=== PATIENT | male | born 1960 | race Caucasian/White ===

== ENCOUNTER 2016-12-10 06:44 | Day surgery (SDC) | payer MEDICARE, OTHER ==
[2016-12-05 16:41] VITALS: BMI 28.5
[~2016-12-10 06:44] MED LIST: LACTATED RINGERS 1,000 ML IV SCH
[2016-12-10] MEDS ORDERED: LACTATED RINGERS 1,000 ML IV ONE (06:53)
[2016-12-10 07:14] VITALS: TEMP 96.8
[2016-12-10] MEDS ORDERED: PROPOFOL 10 MG/ML 20 ML VIAL IV ONE (07:46)
[2016-12-10] MEDS ORDERED: LIDOCAINE 1% INJ 10MG/ML (20 ML MDV) ONE (07:46)
--- NOTE | 2016-12-10 08:24 | P.OP ---
Date of Procedure: 12/10/16 Preoperative Diagnosis: History of computed tomography scan showing diverticular disease Postoperative Diagnosis: Polyp at 30 cm, rectosigmoid polypoid changes cold biopsies obtained, sigmoid diverticuli, internal hemorrhoids Procedure(s) Performed: Colonoscopy, snare polypectomy with retrieval of polyp at 30 cm, cold biopsy of 2 polypoid areas in the rectosigmoid area Anesthesia: MAC Surgeon: Layne Bradshaw Estimated Blood Loss (ml): 0 IV fluids (ml): 600 Pathology: other (Polyp at 30 cm removed with snare polypectomy and retrieved, rectosigmoid polypoid changes biopsied with cold biopsy 2 areas) Condition: stable Disposition: PACU Indications for Procedure: Screening as well as CT findings consistent with a diverticular change Operative Findings: Rectosigmoid polypoid changes, polyp at 30 cm, sigmoid diverticuli, internal hemorrhoids Description of Procedure: Patient was taken to the endoscopy suite and following sedation rectal exam was performed. Patient was noted to have good sphincter tone no masses. Colonoscope was passed through the anus into the rectum. At 30 cm a polyp was identified which was removed with snare polypectomy and retrieved. Scope was advanced through the sigmoid colon up to the splenic flexure. The scope was advanced through the transverse colon hepatic flexure right colon down to the area of the cecum. Circumferential observation of the mucosa did not reveal any lesions of concern in the cecum or right colon. No lesions of concern were identified in the transverse colon. In the sigmoid colon scattered diverticuli were noted. The area 30 cm with a polypectomy had been performed was again identified no evidence of any active bleeding was noted. At the rectosigmoid junction area some polypoid changes which were felt to be hyperplastic were identified. Cold biopsy was obtained of to these areas. The scope was brought into the rectum where it was retroflexed. The patient was noted to have internal hemorrhoids. Approximately 15 minutes were taken to withdraw the scope from the area of the cecum to the rectum. Impression/plan: 1. Polypoid lesions as described above await pathology 2. Diverticuli 3. Internal hemorrhoids Plan: 1. Most likely repeat scope in 2 years 2. Conservative management of diverticuli 3. Conservative management of hemorrhoids
[2016-12-10 08:25] VITALS: RESP 18
[2016-12-10 08:39] VITALS: BP 133/93; PULSE 73
--- NOTE | 2016-12-10 08:54 | P.DS ---
Providers Attending physician: Layne Bradshaw Primary care physician: Uziel Shah Plan - Discharge Summary Discharge Medication List HYDROcodone/APAP 10-325MG [[place] 10-325] 10 mg PO BID 04/11/14 [History] QUEtiapine [SEROquel] 100 mg PO HS 07/11/15 [History] Atorvastatin [Lipitor] 40 mg PO DAILY #30 tab 11/19/16 [Rx] Metoprolol Tartrate [Lopressor] 25 mg PO BID #30 tab 11/19/16 [Rx] Pantoprazole [Protonix] 40 mg PO AC-BRKFST #30 tablet. 11/19/16 [Rx] Testosterone Un 1 applic IM Q14D 12/05/16 [History] Follow up Appointment(s)/Referral(s): Layne Bradshaw MD [STAFF PHYSICIAN] - As Needed Patient Instructions/Handouts: *Surgery [facility] - (Anesthesia) Endoscopy Discharge Instructions, Colonoscopy (DC) Activity/Diet/Wound Care/Special Instructions: call Dr. Shah on Friday for results of biopsies Discharge Disposition: HOME SELF-CARE
== END 2016-12-10 09:11 | disposition home or self-care (01) ==
LOC: ORWHC2ENDO 06:44
PROVIDERS: ATTEND Surgery
DX: D12.5 Benign neoplasm of sigmoid colon (principal); K62.1 Rectal polyp; K57.30 Diverticulosis of large intestine without perforation or abscess without bleeding; K64.8 Other hemorrhoids; I10 Essential (primary) hypertension; K21.9 Gastro-esophageal reflux disease without esophagitis; Z79.899 Other long term (current) drug therapy
CPT/HCPCS: 88305; 45380; 45385; J2001; J2704; 99153

== ENCOUNTER 2017-03-14 10:35 | Emergency (ER) | payer MEDICARE, OTHER ==
[2017-03-14 10:49] VITALS: BP 156/94; PULSE 85; RESP 18; TEMP 98.4
[2017-03-14] MEDS ORDERED: ORPHENADRINE 30 MG/ML 2 ML VIAL IM STA (11:17)
[2017-03-14] MEDS ORDERED: KETOROLAC 60 MG/2 ML VIAL IM STA (11:17)
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
== END 2017-03-14 11:37 | disposition home or self-care (01) ==
LOC: EC 10:35
DX: Z76.0 Encounter for issue of repeat prescription (principal); M19.90 Unspecified osteoarthritis, unspecified site; F32.9 Major depressive disorder, single episode, unspecified; F41.9 Anxiety disorder, unspecified; F17.200 Nicotine dependence, unspecified, uncomplicated; Z79.891 Long term (current) use of opiate analgesic; Z79.899 Other long term (current) drug therapy
CPT/HCPCS: 99282

== ENCOUNTER → 2020-04-07 | Outpatient (CLI) | payer MEDICARE ==
--- NOTE | 2020-04-07 14:50 | CT ---
EXAMINATION TYPE: CT soft tissue neck w con DATE OF EXAM: 04/07/2020 2:17 PM COMPARISON: None HISTORY: right side mandibular swelling CT DLP: 550.5 mGycm Automated exposure control for dose reduction was used. CONTRAST: CT scan of the neck is performed following with IV Contrast, patient injected with 100 mL of Isovue 3 00. Axial images are obtained, coronal and sagittal reformatted images are reviewed. FINDINGS: Airway: No gross abnormality seen. There are some emphysematous changes in the upper lobes, subpleura l bleb formation in the apices. Parotid/submandibular glands: Within the right parotid gland there is a mass, oval in shape measurin g 1.8 x 2.5 x 3.2 cm in cephalad to caudal dimension abutting the right mandible posterior margin. On ly mild enhancement. Left parotid gland is unremarkable. Submandibular glands show a symmetric appear ance. Carotid/Vascular Structures: Patent, 3 super aortic branch vessels are present. Atheromatous changes are present at the carotid bifurcations, no significant stenosis is evident. Proximal descending aort a measures 3.2 cm. Left vertebral artery is dominant. Osseous Structures: There are degenerative disc changes present, spondylosis and loss of disc height greatest at C5-6 and C6-7. Other: Orbits show symmetric appearance. Mild inflammatory change present at the base of the right ma xillary sinus. IMPRESSION: Nonspecific right parotid mass. Proximal descending aorta is ectatic. Additional finding s above.
== END | disposition home or self-care (01) ==
LOC: RADCTMAIN 13:51
PROVIDERS: ATTEND Otolaryngology
DX: K11.8 Other diseases of salivary glands (principal); I77.819 Aortic ectasia, unspecified site
CPT/HCPCS: 70491; Q9967

== ENCOUNTER → 2020-08-02 | Outpatient (CLI) | payer MEDICARE ==
--- NOTE | 2020-08-02 22:57 | MR ---
MRI CERVICAL SPINE: CLINICAL HISTORY: Headaches with neck pain causing pain and weakness and right arm and fingers since December 2019 per patient. TECHNIQUE: Multiplanar, multisequence imaging of the cervical spine is performed without IV contrast. COMPARISON: CT neck March 2020.. FINDINGS: Sagittal images of the cervical spine show the craniocervical junction to remain within nor mal limits. The cervical and upper thoracic spinal cord is normal in course, caliber, and signal. Th ere is slight grade 1 retrolisthesis C6 on C7 redemonstrated. The vertebral body heights remain norm al. Mild to moderate disc space narrowing and anterior spurring with heterogeneous Modic type II endp late changes C5-C6 and C6-C7 level is present. Axial images show the C2-C3 level to appear within normal limits. Axial images at C3-C4 levels mild uncovertebral facet degenerative changes bilaterally. Similar findi ng noted at C4-C5 level. Axial images at the C5-C6 level show broad-based left paracentral disc protrusion and uncovertebral f acet degenerative changes bilaterally, there is mild right and moderate left-sided neural foraminal n arrowing noted. Axial images at the C6-C7 level show broad-based posterior disc protrusion effacing anterior thecal s ac with mild to moderate bilateral neural foraminal narrowing. Axial images at C7-T1 level are within normal limits. IMPRESSION: Multilevel degenerative changes in the cervical spine greatest at C5-C6 and C6-C7 levels as detailed above.
== END | disposition home or self-care (01) ==
LOC: RADMRIMAIN 18:33
PROVIDERS: ATTEND Psychiatry & Neurology Neurology
DX: M47.812 Spondylosis without myelopathy or radiculopathy, cervical region (principal)
CPT/HCPCS: 72141

== ENCOUNTER → 2020-09-23 | Outpatient (CLI) | payer MEDICARE ==
--- NOTE | 2020-09-25 14:45 | PE ---
EXAMINATION TYPE: PET CT fusion skull to thigh DATE OF EXAM: 09/23/2020 COMPARISON: CT neck 04/07/2020. CT abdomen and pelvis 01/31/2016. Prior PET/CT: None HISTORY: Lymphoma. TECHNIQUE: Following the intravenous administration of 12.33 mCi of F-18 FDG, whole body images are performed from the skull base to the midthigh. Images are reviewed on the computer in the coronal, a xial, and sagittal planes. Reconstructed rotating images are created on independent workstation and reviewed on the computer. A localization and attenuation correction CT is performed in conjunction with the PET scan. SCAN: Initial Scan Blood glucose: 101 mg/dL Average Mediastinum SUV: 1.4 Average Liver SUV: 1.9 FINDINGS: NECK: Multifocal hypermetabolic activity within the right parotid gland, and right cervical lymph no pearl and nodules demonstrating hypermetabolic activity inferior and posterior to the right parotid gla nd and infra-auricular, max SUV 3.8. Largest lymph node measures 0.8 x 1.7 cm (3:39). THORAX: No hypermetabolic activity. ABDOMEN/PELVIS: Hypermetabolic activity associated with the posterior gastric fundus with maximum SUV 4.25, with no discrete CT correlate. OSSEOUS STRUCTURES: No hypermetabolic activity. LOCALIZATION CT: Calcified coronary artery disease. No pericardial effusion. Small hiatal hernia. No splenomegaly. No thoracic or abdominal pelvic lymphadenopathy COMPARISON: Lymph nodes within the right infra-auricular neck are increased in size versus 04/19/2020 CT. IMPRESSION: 1. Right neck infra-auricular, periparotid, and intraparotid hypermetabolic lymph nodes and soft tiss ue nodules, consistent with history of lymphoma. Lymph nodes are increased in size versus 04/07/2020 CT comparison. 2. Focus of hypermetabolic activity within the right posterior gastric fundus. No CT correlate. Recom mend correlation with endoscopy. 3. No splenomegaly. No thoracic, abdominal, or pelvic lymphadenopathy.
== END | disposition home or self-care (01) ==
LOC: RADPETMAIN 07:39
PROVIDERS: ATTEND Internal Medicine Hematology & Oncology
DX: R93.5 Abnormal findings on diagnostic imaging of other abdominal regions, including retroperitoneum (principal); C81.91 Hodgkin lymphoma, unspecified, lymph nodes of head, face, and neck
CPT/HCPCS: 78815; A9552

== ENCOUNTER → 2020-09-26 | Outpatient (CLI) | payer MEDICARE ==
--- NOTE | 2020-09-26 13:54 | MR ---
EXAMINATION TYPE: MR brain wo/w con DATE OF EXAM: 09/26/2020 COMPARISON: PET CT 3 days ago. HISTORY: History of lymphoma and recent abnormal PET/CT TECHNIQUE: Multiplanar, multisequence images of the brain and brainstem is performed without and with IV contras t, utilizing 11.5 mL intravenous Gadavist . FINDINGS: Diffusion weighted images demonstrate no evidence of a recent infarct or other diffusion ab normality. There is no worrisome extra-axial fluid collection. Mild ventricular and sulcal prominenc e. Occasional focus of T2 hyperintensity seen throughout the white matter bilaterally. Less than 6 sm all scattered lesions are seen. Midline structures demonstrate normal morphology. The craniocervical junction appears within normal limits. Post contrast images demonstrate no abnormal enhancement. The dural venous sinuses appear pa tent. The visualized sinuses are clear and the globes are intact. There is partial visualization of right parotid gland, corresponding to PET CT there is heterogeneous slight enlargement with areas of ill-defined increased T2 signal and heterogeneous postcontrast enha ncement. For reference postcontrast image 55. IMPRESSION: Mild diffuse age-related cerebral atrophy and minimal chronic small vessel ischemic ricks e. No suspicious intracranial enhancement. Partial visualization of abnormal right parotid gland diff erential includes inflammation versus neoplastic involvement from lymphoma, correlate clinically, lat ter is favored.
== END | disposition home or self-care (01) ==
LOC: RADMRIMAIN 11:49
PROVIDERS: ATTEND Internal Medicine Hematology & Oncology
DX: G31.1 Senile degeneration of brain, not elsewhere classified (principal); I67.82 Cerebral ischemia; C81.91 Hodgkin lymphoma, unspecified, lymph nodes of head, face, and neck
CPT/HCPCS: 70553; A9585

== ENCOUNTER → 2020-11-28 | Outpatient (CLI) | payer MEDICARE ==
--- NOTE | 2020-11-28 13:54 | CT ---
EXAMINATION TYPE: CT soft tissue neck w con DATE OF EXAM: 11/28/2020 HISTORY: Rt sided parotid surgery with abscess COMPARISON: CT neck March 2020. PET/CT September 23, 2020 CT DLP: 801.1 mGycm. Automated Exposure Control for Dose Reduction was Utilized. TECHNIQUE: CT scan of the neck is performed with IV Contrast, patient injected with 100 mL of Isovue 300, axial images are obtained, coronal and sagittal reformatted images are reviewed. FINDINGS: Airway: Mild emphysematous change in the lung apices. Parotid/submandibular glands: Submandibular glands symmetric and felt within normal limits. Left parotid gland remains unremarkable. Diminished size to right parotid gland after right-sided res ection. Mild ill-defined fluid and skin thickening similar to recent PET/CT at this level. Deep to th e inferior aspect of right parotid gland there is an enlarging adenopathy identified. For reference s eries 2.2 x 1.4 cm mass or lymph node adjacent to right internal jugular vein axial image 75. For ref erence there is 1.5 x 1.3 cm enlarging mass or lymph node posterior to this on same image. Lesions bowens ve increased in size from most recent PET/CT . There are prominent borderline 1 cm lymph nodes inferi or to this extending towards the supraclavicular region. There is 11 x 7 mm lymph node adjacent to ri ght internal jugular vein at level of thyroid gland axial image 53 noted. Carotid/Vascular Structures: Mild to moderate mixed plaque at bilateral carotid bulb level redemonstr ated without significant stenosis. Dominant left vertebral artery. Vertebral arteries patent to basil ar junction. Osseous Structures: Mild disc space narrowing C5-C6 level. Moderate disc space narrowing with mild sp urring C6-C7 level. Other: Prominent but subcentimeter lymph nodes throughout the left neck. IMPRESSION: Enlarging right-sided neck adenopathy consistent with neoplasm probable lymphoma progress ion.
== END | disposition home or self-care (01) ==
LOC: RADCTMAIN 12:29
PROVIDERS: ATTEND Family Medicine
DX: R59.0 Localized enlarged lymph nodes (principal)
CPT/HCPCS: 70491; Q9967

== ENCOUNTER 2020-12-11 12:54 | Day surgery (SDC) | payer MEDICARE ==
[2020-12-11] MEDS ORDERED: ALPRAZolam 0.5 MG TAB PO STA (13:33)
[2020-12-11 13:36] VITALS: RESP 18
[2020-12-11 13:37] VITALS: TEMP 98.2
[2020-12-11 15:12] VITALS: BP 136/88; PULSE 84
--- NOTE | 2020-12-11 17:29 | US ---
EXAMINATION TYPE: US biopsy lymph node DATE OF EXAM: 12/11/2020 HISTORY: Right-sided submandibular adenopathy, lymphoma FINDINGS: Maximal barrier technique was utilized. Hand hygiene achieved with soap and water and alco hol-based hand rub. The skin overlying a suitable path to the patient's mass in right submandibular l ocation] was localized with ultrasound and the overlying skin prepped and draped. Ultrasound was uti lized with sterile technique. Lidocaine was used for local anesthesia. Single pass with a 25-gauge needle was made and aspirated specimen submitted to pathology. A skin jasen was made with a scalpel. An 18-gauge needle was advanced under direct ultrasound guidance and core specimen obtained of the ad enopathy. 3 additional core biopsy passes were made. Specimen submitted in formalin to Pathology. F ollowing the procedure, hemostasis achieved and the patient is discharged in stable condition without complication. IMPRESSION:STATUS POST ULTRASOUND GUIDED FINE-NEEDLE ASPIRATION AND CORE BIOPSY OF right submandibula r adenopathy, PATHOLOGY IS PENDING. THIS PROCEDURE IS PERFORMED BY THE UNDERSIGNED.
== END 2020-12-11 15:20 | disposition home or self-care (01) ==
LOC: RADPROMAIN 12:54
PROVIDERS: ATTEND Internal Medicine Hematology & Oncology
DX: C81.41 Lymphocyte-rich Hodgkin lymphoma, lymph nodes of head, face, and neck (principal)
CPT/HCPCS: 38505; 76942; 88173; 88305; 88341; 88342

== ENCOUNTER → 2020-12-22 | Outpatient (CLI) | payer MEDICARE ==
[2020-12-22 08:16] LABS: HCT 45.5 % (39.0-53.0); HGB 15.3 gm/dL (13.0-17.5); MCH 30.2 pg (25.0-35.0); MCHC 33.5 g/dL (31.0-37.0); Mean Platelet Volume 6.7; Platelet Count 230 k/uL (150-450); RBC 5.06 m/uL (4.30-5.90); RDW 13.8 % (11.5-15.5); WBC 7.7 k/uL (3.8-10.6)
[2020-12-22 11:17] LABS: T4, Free (Free Thyroxine) 1.2 ng/dL (0.80-1.80)
== END | disposition home or self-care (01) ==
LOC: LABWHC1 12-08 08:35
PROVIDERS: ATTEND Internal Medicine Endocrinology, Diabetes & Metabolism
DX: E29.1 Testicular hypofunction (principal)
CPT/HCPCS: 36415; 84403; 84439; 84443; 85027

== ENCOUNTER → 2021-01-01 | Outpatient (CLI) | payer MEDICARE | END | disposition home or self-care (01) | LOC: CPPFTMAIN 12:49 | PROVIDERS: ATTEND Internal Medicine Hematology & Oncology | DX: C81.91 Hodgkin lymphoma, unspecified, lymph nodes of head, face, and neck (principal) | CPT/HCPCS: 94060; 94726; 94729 ==

== ENCOUNTER → 2021-01-02 | Outpatient (CLI) | payer MEDICARE ==
--- NOTE | 2021-01-03 09:35 | ECHOF ---
Referral Reason:Z01.818 pre chemo MEASUREMENTS -------- HEIGHT: 160.0 cm WEIGHT: 111.1 kg BP: RVIDd: 2.6 cm (< 3.3) IVSd: 1.0 cm (0.6 - 1.1) LVIDd: 4.9 cm (3.9 - 5.3) LVPWd: 1.1 cm (0.6 - 1.1) IVSs: 1.8 cm LVIDs: 2.4 cm LVPWs: 1.9 cm LAESV Index (A-L): 18.33 ml/m Ao Diam: 3.1 cm (2.0 - 3.7) AV Cusp: 2.2 cm (1.5 - 2.6) LA Diam: 2.8 cm (2.7 - 3.8) MV EXCURSION: 11.540 mm (> 18.000) MV EF SLOPE: 85 mm/s (70 - 150) EPSS: 1.7 cm MV E Sergio: 0.43 m/s MV DecT: 226 ms MV A Sergio: 0.77 m/s MV E/A Ratio: 0.55 RAP: 5.00 mmHg RVSP: 14.31 mmHg FINDINGS -------- This was a technically adequate study. The left ventricular size is normal. Left ventricular wall thickness is normal. Overall left vent ricular systolic function is normal with, an EF between 55 - 60 %. The diastolic filling pattern is normal for the age of the patient 5.79. The right ventricle is normal in size. The left atrial size is normal. Normal LA size by volume 22+/-6 ml/m2. The right atrial size is normal. The aortic valve is trileaflet and appears structurally normal. The mitral valve is normal. There is trace mitral regurgitation. The tricuspid valve appears structurally normal. Trace tricuspid regurgitation present. Right parris tricular systolic pressure is normal at < 35 mmHg. There is no pulmonic regurgitation present. The aortic root size is normal. Normal inferior vena cava with normal inspiratory collapse consistent with estimated right atrial pre ssure of 5 mmHg. There is no pericardial effusion. CONCLUSIONS -------- 1. The left ventricular size is normal. 2. Left ventricular wall thickness is normal. 3. Overall left ventricular systolic function is normal with, an EF between 55 - 60 %. 4. The diastolic filling pattern is normal for the age of the patient 5.79 5. There is trace mitral regurgitation. 6. Trace tricuspid regurgitation present. 7. There is no pericardial effusion. SHEET METAL TECHNICIAN: Yelitza Cannon RDCS
== END | disposition home or self-care (01) ==
LOC: RADECHMAIN 12:06
PROVIDERS: ATTEND Internal Medicine Hematology & Oncology
DX: Z01.818 Encounter for other preprocedural examination (principal); I08.1 Rheumatic disorders of both mitral and tricuspid valves
CPT/HCPCS: 93306

== ENCOUNTER → 2021-01-06 | Outpatient (CLI) | payer MEDICARE ==
--- NOTE | 2021-01-08 15:21 | PE ---
Nuclear medicine PET/CT HISTORY: Z 31.91, lymphoma in the right neck, subsequent Patient received 11.3 mCi F-18 FDG intravenously delayed scanning was performed from skull base to th e mid thighs. Localization and attenuation correction CT scan was performed. Correlation prior nuclear medicine PET/CT 09/23/2020, CT neck 11/28/2020 Chest and neck: No deep to the sternocleidomastoid muscle on the right which is increased in size com pared to prior PET/CT shows a short axis measurement of approximately 15.5 mm today's scan and shows associated hypermetabolic uptake, SUV 3.6, immediately anterior there is an additional enlarged nodes at the angle of the mandible as noted on prior CT increased in size compared to prior PET/CT, SUV ap proximately 4.4, additional nodes are present at this level, noted just deep to the jugulodigastric n ode is prominent as on previous exams, SUV is partially 3.6. More inferiorly a nonenlarged node is pr esent, SUV is 2.9. No supraclavicular adenopathy. Retrocaval pretracheal low dense focus does not matthew w any associated uptake, there is no hilar or supraclavicular adenopathy. Port is present in left pec cristobal region courses via jugular approach with termination in the innominate vein on the left. No caesar dent lung mass, no pleural or pericardial effusion. ABDOMEN: No retroperitoneal adenopathy. No suspicious hypermetabolic uptake. No evident liver mass. T here is no ascites. There are prostate calcifications. Stomach shows a similar appearance, posterior fundus shows uptake, SUV 4.2 Osseous structures show no hypermetabolic uptake. Sclerotic focus in the posterior right ilium is sta ble. IMPRESSION: Persistent abnormal uptake within the right neck nodes as described.
== END | disposition home or self-care (01) ==
LOC: RADPETMAIN 10:25
PROVIDERS: ATTEND Internal Medicine Hematology & Oncology
DX: C81.91 Hodgkin lymphoma, unspecified, lymph nodes of head, face, and neck (principal); Z92.21 Personal history of antineoplastic chemotherapy
CPT/HCPCS: 78815; A9552

== ENCOUNTER → 2021-02-20 | Outpatient (CLI) | payer MEDICARE | LOC: CPPFTMAIN 08:55 | PROVIDERS: ATTEND Internal Medicine Hematology & Oncology | DX: Z01.818 Encounter for other preprocedural examination (principal); C85.90 Non-Hodgkin lymphoma, unspecified, unspecified site | CPT/HCPCS: 94060; 94726; 94729 ==

== ENCOUNTER → 2021-05-18 | Outpatient (CLI) | payer MEDICARE ==
--- NOTE | 2021-05-18 13:46 | PE ---
EXAMINATION TYPE: PET CT fusion skull to thigh DATE OF EXAM: 05/18/2021 COMPARISON: Prior PET/CT January 06, 2021 and prior study September 23, 2020 HISTORY: Hodgkin lymphoma progress study. Diagnosed in August 2020 right jaw region biopsy. Comple thomas chemotherapy April 19, 2021. Also had radiation treatment. TECHNIQUE: Following the intravenous administration of 9.76 mCi of F-18 FDG, whole body images are p erformed from the skull base to the midthigh. Images are reviewed on the computer in the coronal, ax ial, and sagittal planes. Reconstructed rotating images are created on independent workstation and r eviewed on the computer. A localization and attenuation correction CT is performed in conjunction w ith the PET scan. Blood glucose level equals 85. SCAN: Subsequent Scan FINDINGS: SKULL BASE AND NECK: Some scar tissue at the level of right parotid gland just inferior to extra aud itory canal axial image 32 remains present. Prior visualized abnormal enlarged hypermetabolic lymph n odes deep and inferior to this near image 41 current study showed no abnormal hypermetabolic uptake a nd are much smaller in size on current study. No new areas of abnormal hypermetabolic uptake. CHEST, MEDIASTINUM, AND HILAR REGION: No new areas of abnormal hypermetabolic uptake. ABDOMEN AND PELVIS: Normal excretion. No new areas of abnormal hypermetabolic uptake. Continued Impro jasmyne hypermetabolic uptake in the posterior wall gastric fundus noted and should be correlated clinica lly. OSSEOUS STRUCTURES: No new areas of abnormal hypermetabolic uptake. OTHER CT: Mild calcified plaque bilateral carotid bulb level. Stable left internal jugular central ve nous catheter terminating short of the SVC. Moderate to severe coronary artery calcification is redemonstrated. Moderate calcified plaque of the aorta extends into branch vessels. Normal-appearing appendix from th e cecum. Central calcifications in prostate. A few scattered colonic diverticula. Facet arthropathy l ower lumbar spine. Disc space narrowing and spurring lower cervical spine. IMPRESSION: Complete positive treatment response. No new or residual areas of abnormal hypermetabolic uptake to suggest active Hodgkin's lymphoma.
== END | disposition home or self-care (01) ==
LOC: RADPETMAIN 09:59
PROVIDERS: ATTEND Internal Medicine Hematology & Oncology
DX: C81.91 Hodgkin lymphoma, unspecified, lymph nodes of head, face, and neck (principal)
CPT/HCPCS: 78815; A9552

== ENCOUNTER → 2021-11-09 | Outpatient (CLI) | payer MEDICARE ==
--- NOTE | 2021-11-12 10:26 | PE ---
Nuclear medicine PET/CT HISTORY: C 81.91, lymphoma Patient received 8.3 mCi F-18 FDG intravenously and delayed scanning was performed from the skull bas e to the mid thighs. A localization and attenuation correction CT scan was performed. Correlation to prior nuclear medicine PET/CT 05/18/2021 Chest and neck: There is no cervical or supraclavicular adenopathy. No mediastinal, axillary, or gisela r adenopathy. Coronary artery calcifications are present. There is no pleural pericardial effusion. W ithin the left upper lobe along the fissure there is a small focus of soft tissue density measuring a pproximately 1 cm in greatest dimension, there is some associated hypermetabolic uptake is mild, SUV 2.2, possibly postinflammatory, interval finding. ABDOMEN: There is no evident liver mass. Gallbladder, adrenal glands, pancreas, spleen, kidneys are w ithin normal limits. No retroperitoneal adenopathy or ascites, no evident pneumoperitoneum. No suspic ious uptake. No pelvic adenopathy. Prostate shows associated calcifications. Osseous structures show no suspicious uptake. IMPRESSION: Small focus of uptake in the left midlung as described, follow-up suggested. No other caesar dent abnormal uptake.
== END | disposition home or self-care (01) ==
LOC: RADPETMAIN 08:19
PROVIDERS: ATTEND Internal Medicine Hematology & Oncology
DX: C81.91 Hodgkin lymphoma, unspecified, lymph nodes of head, face, and neck (principal)
CPT/HCPCS: 78815; A9552

== ENCOUNTER → 2022-02-06 | Outpatient (CLI) | payer MEDICARE ==
--- NOTE | 2022-02-06 11:53 | CT ---
EXAMINATION TYPE: CT neck chest without con DATE OF EXAM: 02/06/2022 COMPARISON: CT dated 11/28/2020 and PET scan dated 11/09/2021 HISTORY: lymphoma, obs for mets CT DLP: 1771.2 mGycm Automated exposure control for dose reduction was used. TECHNIQUE: Multiplanar CT scan of the neck and chest without IV contrast administration. FINDINGS: Neck: Suspected scar tissue seen at the posterior aspect of the right parotid gland. Significant interval r egression of the previously seen enlarged right cervical lymph nodes. No pathologically enlarged lymp h nodes identified in the neck today. Scattered subcentimeter bilateral cervical lymph nodes measurin g up to 6 mm in left level 2 group and 5 mm in right level 2 group. Asymmetrically smaller left pyriform sinus, appreciated previously. Otherwise unremarkable nasopharyn x, oropharynx, hypopharynx and larynx. Unremarkable thyroid gland. Symmetrical unremarkable submandib ular salivary glands. Unremarkable left parotid gland and remainder of the right parotid gland. Scatt ered arterial atherosclerotic calcifications. Degenerative changes of the atlantoodontoid articulatio n as well as at C5-6 and C6-7 levels. CHEST: COPD changes. Stable 3 mm nodule at the inferior aspect of the left upper lobe as compared to 2016 CT scan consistent with benign nodule. Other millimetric smaller pulmonary nodules, also stable. Parase ptal emphysema in the lung apices bilaterally with suspected small lung herniation between the pancake professional ior aspects of the right first and second ribs, stable. No new suspicious or progressive lung lesion. Patent central airways. No pleural or pericardial effus ion. Arterial and coronary atherosclerotic calcifications. No cardiomegaly. No pathologically enlarge d lymph nodes in the chest. Unremarkable upper abdomen. No aggressive bone lesion. Osteopenia. IMPRESSION: Interval regression of the previously seen enlarged cervical lymph nodes. No suspicious lesion or pat hologically enlarged lymph nodes identified today in the neck or the chest. Incidental findings as de scribed above.
== END | disposition home or self-care (01) ==
LOC: RADCTMAIN 10:30
PROVIDERS: ATTEND Internal Medicine Hematology & Oncology
DX: C81.91 Hodgkin lymphoma, unspecified, lymph nodes of head, face, and neck (principal)
CPT/HCPCS: 70490; 71250

== ENCOUNTER → 2022-08-21 | Outpatient (CLI) | payer MEDICARE ==
[2022-08-21 08:51] LABS: African American GFR (CKD) >90 (>60 ml/min/1.73 sqM); Blood Urea Nitrogen 10 mg/dL (9-20); Non-African American GFR(CKD) >90 (>60 ml/min/1.73 sqM)
--- NOTE | 2022-08-21 12:03 | CT ---
EXAMINATION TYPE: CT neck chest w con DATE OF EXAM: 08/21/2022 COMPARISON: PET CT 11/09/2021 HISTORY: Lymphoma CT DLP: 1725.20 mGycm, Automated exposure control for dose reduction was used. CONTRAST: Performed injected with 100 mL of Isovue 300. TECHNIQUE: Axial images were obtained at 5 mm thick sections. Reconstructed images are reviewed on [employer] computer in the coronal plane. FINDINGS: Portion of the thyroid visualized is normal. No suspicious lung nodules or focal infiltrates are present. Previous left lung nodule is not identif ied. No enlarged mediastinal or hilar adenopathy is evident. No axillary adenopathy. No subcrural adenop athy The ascending aorta diameter at the level of the main pulmonary artery is 3.7 cm. The main pulm onary artery diameter at the bifurcation is 2.[address] sections are obtained through the upper abdomen. Abdomen is essentially unremarkable. IMPRESSIONS: 1. No suspicious changes to suggest recurrent or residual lymphoma. EXAMINATION TYPE: CT neck chest w con DATE OF EXAM: 08/21/2022 COMPARISON: 11/28/2020 HISTORY: Lymphoma CT DLP: 1725.20 mGycm CONTRAST: Patient injected with 100 mL of Isovue 300. TECHNIQUE: Axial images at 3 mm thick sections. Reconstructed images in the coronal plane and sagitt al plane are reviewed. FINDINGS: Limited CT sections are obtained the lung apices. The lung apices appear clear. Supraclavi cular region appear normal. No suspicious lymphadenopathy. CT neck: The torus tubarius and fossa of Rosenmuller are normal. [employer] spaces are normal. Para nasal sinuses and mastoid air cells are clear. Parotid glands appear normal and symmetrical. Submandibular glands, are normal. Parapharyngeal spac es are normal. No suspicious adenopathy is evident. The hypopharynx appears within normal limits. Vocal cord level appears closed at the time of imaging. Subglottic airway appears unremarkable. Thyroid as visualized is normal. Osseous structures appear unremarkable degenerative changes are within the cervical spine. IMPRESSIONS: 1. No suspicious abnormality suggest recurrent or metastatic lymphoma.
== END | disposition home or self-care (01) ==
LOC: RADCTMAIN 08:03
PROVIDERS: ATTEND Internal Medicine Hematology & Oncology
DX: C81.91 Hodgkin lymphoma, unspecified, lymph nodes of head, face, and neck (principal)
CPT/HCPCS: 82565; 84520; 70491; 71260; 36415; Q9967

== ENCOUNTER → 2022-10-01 | Outpatient (CLI) | payer MEDICARE ==
[2022-10-01 14:42] LABS: Basophils # (A) 0.04 X 10*3/uL (0.00-0.10); Basophils % (A) 0.4 %; Eosinophils # (A) 0.21 X 10*3/uL (0.04-0.35); HCT 44.2 % (39.6-50.0); HGB 14.4 g/dL (13.0-17.0); Immature Grans, Automated 0.2 %; Lymphocytes # (A) 2.24 X 10*3/uL (0.90-5.00); MCH 30.5 pg (27.0-32.0); MCHC 32.6 g/dL (32.0-37.0); MCV 93.6 fL (80.0-97.0); Mean Platelet Volume 9.6 fL (9.5-12.2); Monocytes # (A) 0.65 X 10*3/uL (0.20-1.00); Monocytes % (A) 6.1 %; NRBC Per 100 WBC 0 /100 WBCS (0.0-0.0); Neutrophils # (A) 7.52 X 10*3/uL (1.80-7.70); Neutrophils % (A) 70.3 %; Platelet Count 290 X 10*3/uL (140-440); RBC 4.72 X 10*6/uL (4.40-5.60); RDW 13.8 % (11.5-14.5); WBC 10.68 X 10*3/uL (4.50-10.00)
[2022-10-01 14:43] LABS: LDL Cholesterol,Calculated 204.7 mg/dL (0.0-131.0); Uric Acid 3.1 mg/dL (3.7-8.7)
[2022-10-01 15:01] LABS: ALT 20 U/L (10-49); AST 19 U/L (14-35); African American GFR (CKD) 131.1 (60.0-200.0); Albumin 4.3 g/dL (3.8-4.9); Albumin/Globulin Ratio 2.08 (1.60-3.17); Alkaline Phosphatase 95 U/L (41-126); BUN/Creat Ratio 16.54 Ratio (12.00-20.00); Blood Urea Nitrogen 9.1 mg/dL (9.0-27.0); Calcium 9.4 mg/dL (8.7-10.3); Carbon Dioxide 23.1 mmol/L (20.0-27.5); Chloride 106 mmol/L (96-109); Globulin 2.1 g/dL (1.6-3.3); Glucose 95 mg/dL (70-110); Non-African American GFR(CKD) 113.1 (60.0-200.0); Potassium 4.6 mmol/L (3.5-5.5); Prostate Specific Antigen <0.01 ng/mL (0.00-4.50); Sodium 140 mmol/L (135-145); Total Bilirubin <0.15 mg/dL (0.30-1.20); Total Protein 6.4 g/dL (6.2-8.2)
== END | disposition home or self-care (01) ==
LOC: LABWHC1 07:47
PROVIDERS: ATTEND Internal Medicine
DX: C85.90 Non-Hodgkin lymphoma, unspecified, unspecified site (principal); M19.90 Unspecified osteoarthritis, unspecified site; Z12.5 Encounter for screening for malignant neoplasm of prostate; E29.1 Testicular hypofunction
CPT/HCPCS: 36415; 80053; 80061; 82040; 84153; 84270; 84403; 84443; 84550; 85025

== ENCOUNTER → 2023-02-18 | Outpatient (CLI) | payer MEDICARE ==
--- NOTE | 2023-02-18 11:26 | CT ---
EXAMINATION TYPE: CT soft tissue neck w con CT DLP: 620.60 mGycm, Automated exposure control for dose reduction was used. DATE OF EXAM: 02/18/2023 9:18 AM COMPARISON: CT neck chest 08/21/2022, 02/06/2022 CLINICAL INDICATION:Male, 62 years old with history of C81.91 HEAD AND NECK CA; PHH, Head and neck ca , RT side. Tumor removal TECHNIQUE: Standard enhanced CT of the neck following intravenous administration of 100 cc of Isovue 300. Axial sections with coronal and sagittal reformats were obtained. FINDINGS: Brain: Visualized portions are grossly unremarkable. Orbits: Unremarkable Sinuses: Grossly unremarkable. Suprahyoid Neck: The oropharynx, oral cavity, parapharyngeal and retropharyngeal spaces are clear and symmetric. The nasopharynx is unremarkable. Infrahyoid Neck: The larynx, hypopharynx, and supraglottic area are clear and symmetric. Parotid Glands: Unremarkable. Submandibular Glands: Unremarkable. Musculoskeletal: Degenerative disc disease changes of the visualized spine are present. This is most pronounced at C3-C4 with posterior disc osteophyte complex. No acute osseous abnormality. No aggressi ve osseous lesion. Lymph nodes: No pathologically enlarged cervical lymph nodes identified. Stable scattered nonenlarge d lymph nodes. Vascular structures: Visualized major arteries are patent without evidence of aneurysm. Thoracic Inlet/airway: Airway is patent. The lung apices are clear. Soft tissues/Thyroid: Thyroid and remainder of the soft tissues are unremarkable. Other: none. IMPRESSION No suspicious abnormality to suggest recurrent or metastatic lymphoma.
== END | disposition home or self-care (01) ==
LOC: RADCTMAIN 08:48
PROVIDERS: ATTEND Internal Medicine Hematology & Oncology
DX: C81.91 Hodgkin lymphoma, unspecified, lymph nodes of head, face, and neck (principal); Z03.89 Encounter for observation for other suspected diseases and conditions ruled out
CPT/HCPCS: 70491; Q9967

== ENCOUNTER → 2023-12-16 | Outpatient (CLI) | payer MEDICARE ==
--- NOTE | 2023-12-16 12:49 | XR ---
EXAMINATION TYPE: XR shoulder complete RT DATE OF EXAM: 12/16/2023 12:10 PM CLINICAL INDICATION:Male, 63 years old with history of Shoulder pain Rt M25.511; [facility] COMPARISON: None TECHNIQUE: XR shoulder complete RT; examined in AP, internally rotated and scapular Y projections. FINDINGS: No evidence of acute osseous pathology, joint dislocation, or soft tissue swelling. The remaining po rtions of the visualized chest are unremarkable. Mild degeneration changes of the left acromion, dis frederick clavicle with osteophyte formation. There is osteophyte formation of the glenoid and humeral head . There is joint space narrowing of glenohumeral joint IMPRESSION: 1. No acute osseous pathology. 2. Mild shoulder osteoarthrosis.
--- NOTE | 2023-12-17 22:28 | MR ---
EXAMINATION TYPE: MR cervical spine wo con DATE OF EXAM: 12/16/2023 11:49 AM CLINICAL INDICATION:Male, 63 years old with history of M50.30 DEGENERATION OF CERVICAL DISC; PHH, Nec k pain, BUE pain, hx of hodgkin's lymphoma, abnormal Xray COMPARISON: 08/02/2020. TECHNIQUE: Multi planar, multi sequence imaging was performed utilizing: T1-weighted, T2-weighted, an d turbo inversion recovery imaging of the cervical spine. IV Contrast: cc (none if empty) FINDINGS: Alignment: The cervical vertebral bodies have preserved heights. Alignment is within normal limits gi parris patient positioning. Bones: Scattered osteophytes and disc space narrowing. Multilevel degenerative disc disease is noted and most pronounced at the C5-C7 vertebral levels. Cord: The spinal cord is unremarkable with regards to their signal intensity and morphology. Discs: Multilevel disc desiccation is present. C2-C3: No significant disc pathology. The spinal canal is patent. No neural foraminal stenosis. C3-C4: No significant disc pathology. The spinal canal is patent. Bilateral facet and uncovertebral joint arthropathy are present with mild bilateral neural foraminal stenosis. C4-C5: No significant disc pathology. The spinal canal is patent. Bilateral facet and uncovertebral joint arthropathy are present with mild bilateral neural foraminal stenosis. C5-C6: A disc osteophyte complex is present which minimally narrows the ventral subarachnoid space. Bilateral facet and uncovertebral joint arthropathy are present with moderate left mild right bilate ral neural foraminal stenosis. C6-C7: No significant disc pathology. The spinal canal is patent. Bilateral facet and uncovertebral joint arthropathy are present with moderate bilateral neural foraminal stenosis. C7-T1: No significant disc pathology. The spinal canal is patent. No neural foraminal stenosis. Other: None. IMPRESSION: 1. No evidence for disc herniation or significant spinal canal stenosis. 2. Moderate disc degeneration with associated osteoarthritic changes worse at C5-C7 with moderate mike ateral C6-C7 neural foraminal stenosis.
== END | disposition home or self-care (01) ==
LOC: RADMRIMAIN 10:44
PROVIDERS: ATTEND Internal Medicine
DX: M19.011 Primary osteoarthritis, right shoulder (principal); M47.812 Spondylosis without myelopathy or radiculopathy, cervical region; M99.71 Connective tissue and disc stenosis of intervertebral foramina of cervical region; M50.30 Other cervical disc degeneration, unspecified cervical region; Z85.71 Personal history of Hodgkin lymphoma
CPT/HCPCS: 72141

== ENCOUNTER → 2024-01-10 | Outpatient (CLI) | payer MEDICARE ==
--- NOTE | 2024-01-10 15:15 | MR ---
EXAMINATION TYPE: MR brain wo/w con DATE OF EXAM: 01/10/2024 COMPARISON: Prior MRI of brain September 26, 2020 HISTORY: F/u Lymphoma TECHNIQUE: Multiplanar, multisequence images of the brain and brainstem is performed without and with IV contras t, utilizing 10.5 mL intravenous Gadavist . FINDINGS: Diffusion weighted images demonstrate no evidence of a recent infarct or other diffusion ab normality. There is no worrisome extra-axial fluid collection. Mild ventricular and sulcal prominenc e is redemonstrated. Occasional tiny focus of T2 hyperintensity seen throughout the white matter bila terally. Less than 6 tiny scattered lesions are redemonstrated. Midline structures redemonstrate normal morphology. The craniocervical junction remains within deyanira l limits. Post contrast images demonstrate no abnormal enhancement or enhancing masses. The dural ve nous sinuses appear patent. The visualized sinuses are clear and the globes are intact. IMPRESSION: Mild diffuse age-related cerebral atrophy and minimal chronic small vessel ischemic ricks e is redemonstrated. No suspicious enhancement or enhancing masses to suggest metastatic disease to t he brain.
== END | disposition home or self-care (01) ==
LOC: RADMRIMAIN 14:17
PROVIDERS: ATTEND Internal Medicine Hematology & Oncology
DX: I67.82 Cerebral ischemia (principal); G31.1 Senile degeneration of brain, not elsewhere classified; C81.91 Hodgkin lymphoma, unspecified, lymph nodes of head, face, and neck
CPT/HCPCS: 70553; A9585

== ENCOUNTER → 2024-08-10 | Outpatient (CLI) | payer MEDICARE ==
--- NOTE | 2024-08-10 15:58 | CT ---
EXAMINATION TYPE: CT soft tissue neck w con CT DLP: 734 mGycm, Automated exposure control for dose reduction was used. DATE OF EXAM: 08/10/2024 3:49 PM COMPARISON: 08/08/2023. CLINICAL INDICATION: Male, 64 years old with history of C81.91 HODGKIN LYMPHOMA, UNSP, LYMPH NODES OF HEAD; PHH, HX OF LYMPHOMA TO FACE AND NECK AREA. F/U FOR TUMOR ON RT SIDE TECHNIQUE: Standard enhanced CT of the neck. Axial sections with coronal and sagittal reformats were obtained. Contrast used:100ML mL of Isovue 300 with IV Contrast, (None if empty) Oral contrast used: (None if empty) FINDINGS: Brain: Visualized portions are grossly unremarkable. Orbits: Unremarkable Sinuses: Grossly unremarkable. Spaces of the neck: Clear and symmetric. The right face including the parotid gland are relatively si milar to prior imaging no new or enlarging soft tissue mass identified. Musculoskeletal: No acute osseous pathology. Lymph nodes: Multiple nonenlarged lymph nodes are seen along both anterior chains of the neck. Vascular structures: Visualized major arteries are patent without evidence of aneurysm. Thoracic Inlet/airway: Airway is patent. Mild paraseptal emphysema changes in the lungs. Soft tissues/Thyroid: Thyroid and remainder of the soft tissues are unremarkable. Other: none. IMPRESSION 1. Similar appearance of the right neck near the parotid gland compared to multiple priors No eviden ce for lymphadenopathy or recurrence. Specifically no greater than 1.0 cm in short axis lymph nodes i dentified. 2. Prior larynx findings are not significantly changed. No suspicious masses definitively visualized .
== END | disposition home or self-care (01) ==
LOC: RADCTMAIN 14:55
PROVIDERS: ATTEND Internal Medicine Hematology & Oncology
DX: C81.91 Hodgkin lymphoma, unspecified, lymph nodes of head, face, and neck
CPT/HCPCS: 70491